=== PATIENT | female | born 1945 | race Caucasian/White ===

== ENCOUNTER 2019-02-03 07:42 | Day surgery (SDC) | payer OTHER, MEDICARE ==
[~2019-02-03] VITALS: Ht 154.9 cm; Wt 77.1 kg
[~2019-02-03 07:42] MED LIST: ATIVAN0.5 M1 PO; CALCIUM WITH V1 EAC1 PO; FISH OIL 1,001000 M2 PO; GAVISCON TABLE1 EACH PO; MULTI VITAMIN1 EACH PO; NORVASC10 MG PO; SERTRALINE HCL50 MG PO; VITAMIN B-121000 MCG PO; VITAMIN E400 UNIT PO; WAL-FEX D 24 H1 EACH PO
[2019-02-03 08:30] VITALS: BP 132/65
--- NOTE | 2019-02-07 06:11 | O ---
[facility] [place] [address] OPERATIVE REPORT Name: COLE HAGER Room #: DEP [facility].#: [id number] Admission: 02/03/19 Attend Phys: Ken Barry MD Discharge: 02/03/19 Date of : 47 Report #: [id number] THIS REPORT FOR: //name// CC: Dr. Felicitas Carias FAM unknown FELICITAS Barry DATE OF SERVICE: 02/03/2019 SURGEON: Ken Barry MD ORNAMENTAL PLASTER STICKER: None. PREOPERATIVE DIAGNOSIS: Bilateral lower lid ectropion. POSTOPERATIVE DIAGNOSIS: Bilateral lower lid ectropion. OPERATION PERFORMED: Bilateral lower lid ectropion repair. ANESTHESIA: Local with IV sedation. COMPLICATIONS: None. INDICATIONS FOR PROCEDURE: This patient has bilateral acquired lower lid ectropion with chronic tearing, keratopathy and discharge. The current procedures are undertaken in order to improve the patient's visual function, lacrimal outflow, and level of comfort. Informed consent was obtained to include but not limit to the risk of loss of vision, bleeding, infection, scarring, failure to improve the problem and need for further surgery. DESCRIPTION OF OPERATION: The patient was taken to the operating room where 2% Xylocaine with epinephrine mixed with equal parts of 0.75% Marcaine with Wydase was administered transcutaneously and transconjunctivally to each lower lid and lateral canthal area. The patient was then prepped and draped in the usual sterile fashion. A Tay clamp was then used to clamp the left lateral canthus following which a sharp canthotomy and cantholysis were performed. The tarsal strip was prepared laterally, removing the lash bearing portion of the redundant lid margin and the redundant tarsal plate. Hemostasis was achieved with a monopolar cautery, as it was throughout the case. The tarsal strip was then secured to the internal portion of the lateral orbital tubercle with two interrupted 5-0 Prolene sutures. The lateral canthal angle was sharply reformed as the subcutaneous structures and the skin were closed with multiple interrupted 6-0 plain gut sutures. Attention was then turned to the right side where the same procedure was [facility] [address] [place] [address] OPERATIVE REPORT Name: HAGERCOLE Room #: [facility]P [facility].#: [id number] Admission: 02/03/19 Attend Phys: Ken Barry MD Discharge: 02/03/19 Date of : 47 Report #: [id number] performed. The wounds were cleaned and dressed with ophthalmic antibiotic ointment. The patient was then transported to the recovery area, having tolerated the procedure well with no anesthetic or operative complications being noted. <ELECTRONICALLY SIGNED> By: Ken Barry MD 02/07/19 0611 [id number] Ken Barry MD /nt
== END 2019-02-03 09:35 | disposition home or self-care (01) ==
LOC: OR 07:42 → TBA 08:38 → OR 09:35
DX: H02.105 Unspecified ectropion of left lower eyelid (principal); H02.102 Unspecified ectropion of right lower eyelid; I10 Essential (primary) hypertension; F32.9 Major depressive disorder, single episode, unspecified; F41.9 Anxiety disorder, unspecified; K21.9 Gastro-esophageal reflux disease without esophagitis; Z98.890 Other specified postprocedural states; Z96.651 Presence of right artificial knee joint; Z79.899 Other long term (current) drug therapy
CPT/HCPCS: 50010; 50101; 50386; 50398; 51636; 56527; 56531; 62110; 62850; 70005

== ENCOUNTER 2019-03-03 07:40 | Day surgery (SDC) | payer OTHER, MEDICARE ==
[~2019-03-03] VITALS: Ht 154.9 cm; Wt 77.1 kg
[2019-03-03 08:30] VITALS: BP 132/66
--- NOTE | 2019-03-07 06:17 | O ---
[facility] [place] [address] OPERATIVE REPORT Name: COLE HAGER Room #: DEP [facility]..#: [id number] Admission: 03/03/19 Attend Phys: Ken Barry MD Discharge: 03/03/19 Date of : 47 Report #: [id number] THIS REPORT FOR: //name// CC: TENISHA Barry DATE OF SERVICE: 03/03/2019 PREOPERATIVE DIAGNOSIS: Bilateral upper lid ptosis with superior visual field defects both eyes. POSTOPERATIVE DIAGNOSIS: Bilateral upper lid ptosis with superior visual field defects both eyes. OPERATION PERFORMED: Bilateral upper lid functional ptosis repair. DENTAL EQUIPMENT REPAIRER: None. ANESTHESIA: Local with IV sedation. COMPLICATIONS: None. INDICATIONS FOR PROCEDURE: This patient has bilateral upper lid ptosis with superior visual field loss both eyes. Visual field testing demonstrates dense superior visual defects. Retesting with the upper lid elevated shows an improvement in visual field loss of over 30% and in excess of 12 degrees. The current procedure is being undertaken in order to improve the patient's visual function. Informed consent was obtained to include but not limited to the risk of loss of vision, bleeding, infection, scarring, failure to improve the problem and need for further surgery, such as adjustment of lid height. DESCRIPTION OF PROCEDURE: The patient was taken to the operating room, where 2% Xylocaine with epinephrine mixed with equal parts of 0.75% Marcaine with Wydase was administered transcutaneously to each upper lid. The patient was then prepped and draped in the usual sterile fashion. An upper lid crease incision was then made bilaterally and the dissection was carried down until the orbital septum was identified. The orbital septum was then cleared and the preaponeurotic fat identified. The levator aponeurosis was then disinserted from the anterior surface of the tarsal plate and dissected free in the avascular Morin's muscle plane. The aponeurosis was then advanced and reattached to the anterior surface of the tarsal plate with interrupted mattress 6-0 Novafil sutures on each side, adjusting for height and contour. [address] [address] OPERATIVE REPORT Name: ALLEYCOLE Room #: DEP [facility].[place]ao.#: [id number] Admission: 03/03/19 Attend Phys: Ken Barry MD Discharge: 03/03/19 Date of : 47 Report #: [id number] The redundant aponeurosis was then amputated. The incision was then closed with multiple interrupted 6-0 chromic sutures that were used to recreate an upper lid crease. The skin was closed with a running 6-0 plain gut suture. The wound was then cleaned and dressed with ophthalmic antibiotic ointment followed by a Telfa pad. The patient was transported to the recovery area, having tolerated the procedure well with no anesthesia or operative complications being noted. <ELECTRONICALLY SIGNED> By: Ken Barry MD 03/07/19 0617 [facility] 1116 Ken Barry MD /miller
== END 2019-03-03 10:44 | disposition home or self-care (01) ==
LOC: OR 07:40 → TBA 07:40 → OR 10:44
DX: H02.413 Mechanical ptosis of bilateral eyelids (principal); H53.462 Homonymous bilateral field defects, left side; H53.461 Homonymous bilateral field defects, right side; I10 Essential (primary) hypertension; F32.9 Major depressive disorder, single episode, unspecified; F41.9 Anxiety disorder, unspecified; K21.9 Gastro-esophageal reflux disease without esophagitis; Z96.651 Presence of right artificial knee joint; Z98.890 Other specified postprocedural states; Z79.899 Other long term (current) drug therapy
CPT/HCPCS: 50010; 50101; 50386; 50398; 51636; 56528; 56531; 62110; 62850; 70005

== ENCOUNTER 2019-06-09 08:29 | Day surgery (SDC) | payer OTHER, MEDICARE ==
[~2019-06-09] VITALS: Ht 157.5 cm; Wt 74.8 kg
[2019-06-09 09:13] VITALS: BP 136/66
--- NOTE | 2019-06-13 06:19 | O ---
[facility] [place] [address] OPERATIVE REPORT Name: COLE HAGER Room #: DEP [facility]..#: [id number] Admission: 06/09/19 Attend Phys: Ken Barry MD Discharge: 06/09/19 Date of : 47 Report #: [id number] THIS REPORT FOR: cc: TENISHA KRAUSE MD,TENISHA Barry,Ken Peterson MD ~ CC: TENISHA Barry DATE OF SERVICE: 06/09/2019 SURGEON: Ken Barry M.D. DROP WIRE HANGER: None. PREOPERATIVE DIAGNOSIS: Bilateral upper lid dermatochalasia with superior visual field defect. POSTOPERATIVE DIAGNOSIS: Bilateral upper lid dermatochalasia with superior visual field defect. OPERATION PERFORMED: Bilateral upper lid functional blepharoplasty. ANESTHESIA: Local with IV sedation. COMPLICATIONS: None. INDICATIONS FOR SURGERY: This patient has acquired upper lid dermatochalasia with superior visual field loss both eyes because of excessive upper lid tissues to include skin and fat. Visual field testing demonstrates dense superior visual defects. Retesting with the upper lid elevated shows an improvement in visual field loss of over 30% and in excess of 12 degrees. The current procedures are undertaken in order to improve the patient's visual function. Informed consent was obtained to include but not limited to the loss of vision, bleeding, infection, scarring, failure to improve the problem and need for further surgery. DESCRIPTION OF OPERATION: The patient was taken to the operating room, where 2% Xylocaine with epinephrine mixed with equal parts of 0.75% Marcaine with Wydase was administered transcutaneously to each upper lid. The patient was then prepped and draped in the usual sterile fashion and a skin-marking pen was then utilized to outline an upper lid crease that was symmetrical on each side. Graefe forceps were then used to quantitate the redundant upper lid skin and it was similarly outlined. The incisions were then made with Fátima scissors and [facility] [address] [place] [address] OPERATIVE REPORT Name: COLE HAGER [place] Room #: DEP [facility]#: [id number] Admission: 06/09/19 Attend Phys: Ken Barry MD Discharge: 06/09/19 Date of : 47 Report #: [id number] a skin-muscle flap removed from each side with high-temp cautery. Hemostasis was achieved with the monopolar cautery as it was throughout the case. The orbital septum was then identified and the central and medial fat pads were inspected. The redundant soft tissue was then sculpted with the monopolar cautery. The upper lid crease was then reformed with tightening of the pretarsal orbicularis muscle. The upper lid crease was then further reformed with multiple interrupted 6-0 chromic sutures. The skin was then closed with a running 6-0 plain gut suture. The wound was then cleaned and dressed with ophthalmic antibiotic ointment and a nonstick dressing. The patient was transported to the recovery area, where cold compresses were applied, having tolerated the procedure well with no anesthetic or operative complications being noted. <ELECTRONICALLY SIGNED> By: Ken Barry MD 06/13/19 0619 [id number] Ken Barry MD /nt
== END 2019-06-09 12:20 | disposition home or self-care (01) ==
LOC: OR 08:29 → TBA 08:30 → OR 12:20
DX: H02.834 Dermatochalasis of left upper eyelid (principal); H02.831 Dermatochalasis of right upper eyelid; H53.462 Homonymous bilateral field defects, left side; H53.461 Homonymous bilateral field defects, right side; I10 Essential (primary) hypertension; F32.9 Major depressive disorder, single episode, unspecified; K21.9 Gastro-esophageal reflux disease without esophagitis; Z96.651 Presence of right artificial knee joint; Z98.890 Other specified postprocedural states; Z79.899 Other long term (current) drug therapy
CPT/HCPCS: 50010; 50101; 50386; 50398; 51636; 56531; 62110; 62850; 70005